=== PATIENT | male | born 1945 | race Caucasian/White ===

== ENCOUNTER → 2021-05-05 | Outpatient (CLI) | payer MEDICARE ==
[2021-05-05] VITALS (16 sets, daily range): BP systolic 99–133; BP diastolic 68–95
[~2021-05-05] MED LIST: CRESTOR20 MG PO; ELIQUIS5 MG PO; FERROUS SULFATE PO; LANOXIN125 MCG PO; LISINOPRIL2.5 MG PO; PROTONIX40 M2 PO; PROZAC20 M1 PO; TOPROL XL50 MG PO; TRAZODONE HCL50 MG
[2021-05-05 10:31] LABS: HEMATOCRIT 36.6 % (42.0-52.0); HEMOGLOBIN 11.8 gm/dL (14.0-18.0); MCH 29.1 pg (26.0-34.0); MCHC 32.3 g/dL (28.0-37.0); MCV 90.1 fL (80.0-100.0); MPV 8.3 fl. (7.2-11.1); RBC 4.07 mil/uL (4.50-6.00); RDW-CV 16.7 % (10.5-14.5); WBC 3.7 thou/uL (4.0-11.0)
[2021-05-05 10:51] LABS: ALBUMIN 3.8 g/dL (3.4-5.0); CALCIUM 9.5 mg/dL (8.5-10.1); INR 1.3; POTASSIUM 4.7 mmol/L (3.5-5.1); PROTIME 13.5 Seconds (9.20-11.50); TOTAL BILIRUBIN 1.2 mg/dL (<0.1-1.0); TOTAL PROTEIN 7.2 g/dL (6.4-8.2)
--- NOTE | 2021-05-05 13:33 | TEE ---
[place] [address] TRANSESOPHAGEAL ECHOCARDIOGRAM Name: JARAD ZHOU Room: [facility]#: [id number] Admission: 05/05/21 Attend Phys: Tobi Kumar MD Discharge: Date of : 47 Date of Service: 05/05/21 1332 Report #: [id number] THIS REPORT FOR: cc: Francisco Lagunas MD, William MD Blick,Tobi Yi MD [facility] ~ APPROVED REPORT Study performed: 05/05/2021 10:25:52 EXAM: Transesophageal Echocardiogram Patient Location: Out-Patient Status: routine BSA: 1.99 HR: 82 bpm BP: 110/72 mmHg Rhythm: NSR Other Information Study Quality: Adequate Indications Mitral Valve Disease Echo Enhancing Agent Indication: Rule out Shunt Agent(s) / Amount(s) Used: Agitated Saline 10 cc Procedure After obtaining informed consent, patient underwent transesophageal echo in the [employer]. Type of Sedation : Conscious Sedation Sedation was administered by Anat Kay. Sedation start time: 1025 Case end Time: 1040 Sedation was achieved intravenously with: Versed (5) Fentanyl (50) Transesophageal probe was inserted and advanced into esophagus without difficulty by Tobi Kumar MD, FAC. Echo enhancement indication: R/O Septal defect. Echo enhancement agent administered: Agitated Saline The ARETHA was performed without complications. Throughout the procedure, the blood pressure, pulse oximetry, cardiac rhythm, and rate were monitored. The patient tolerated the procedure without [place] [address] TRANSESOPHAGEAL ECHOCARDIOGRAM Name: JARAD ZHOU Room: [facility]#: [id number] Admission: 05/05/21 Attend Phys: Tobi Kumar MD Discharge: Date of : 47 Date of Service: 05/05/21 1332 Report #: [id number] from conscious sedation was uneventful and vital signs were stable. Left Ventricle The left ventricle is normal size. There is normal LV segmental wall motion. There is normal left ventricular wall thickness. Left ventricular systolic function is normal. The left ventricular ejection fraction is within the normal range. LVEF is 50-55%. Right Ventricle The right ventricle is normal size. The right ventricular systolic function is normal. Pacemaker lead is present in the right ventricle. Thrombus noted on the pacing lead Atria Left atrium is severely dilated. No thrombus is visualized in the left atrium or appendage. The interatrial septum is intact with no evidence for an atrial septal defect. Right atrium is moderately dilated. Aortic Valve The Aortic valve is sclerotic. Trace aortic regurgitation. There is no aortic valvular stenosis. Mitral Valve Mitral valve leaflets are moderately thickened. History of mitral valve repair. Evidence of mitral valve ring. No veagetations Moderately severe mitral regurgitation No evidence of mitral valve stenosis. Tricuspid Valve The tricuspid valve is normal in structure. There is no tricuspid valve regurgitation noted. Pulmonic Valve The pulmonary valve is normal in structure. There is no pulmonic valvular regurgitation. Great Vessels The aortic root is normal in size. Mild atherosclerotic plaque is present in the descending aorta. Pericardium There is no pericardial effusion. <Conclusion> [place] [address] TRANSESOPHAGEAL ECHOCARDIOGRAM Name: MICHELLEJARAD VALADEZ Room: [facility] JAYLEENXavier Mana#: [id number] Admission: 05/05/21 Attend Phys: Tobi Kumar MD Discharge: Date of : 47 Date of Service: 05/05/21 133 Report #: [id number] LVEF is 50-55%. Left atrium is severely dilated. No thrombus is visualized in the left atrium or appendage. The Aortic valve is sclerotic. Mitral valve leaflets are moderately thickened. History of mitral valve repair. Evidence of mitral valve ring. No veagetations Moderately severe mitral regurgitation Pacemaker lead is present in the right ventricle. Thrombus noted on the pacing lead The interatrial septum is intact with no evidence for an atrial septal defect. <ELECTRONICALLY SIGNED> By: Tobi Kumar MD, [facility] 05/05/21 133 31 31 Tobi Kumar MD, FAC /INF
== END | disposition home or self-care (01) ==
LOC: M.CL 09:07
PROVIDERS: ATTEND Internal Medicine Cardiovascular Disease
DX: I08.0 Rheumatic disorders of both mitral and aortic valves (principal); I70.0 Atherosclerosis of aorta; I48.91 Unspecified atrial fibrillation; Z79.899 Other long term (current) drug therapy; Z79.01 Long term (current) use of anticoagulants